=== PATIENT | male | born 2000 | race Caucasian/White ===

== ENCOUNTER 2020-08-19 20:26 | Emergency (ER) | payer BC ==
[2020-08-19 20:41] VITALS: BP 126/81; PULSE 92
--- NOTE | 2020-08-19 21:08 | EDM.PDOC ---
ED HPI GENERAL MEDICAL PROBLEM - General Chief Complaint: ENT Problem Stated Complaint: NOSE INJURY Time Seen by Provider: 08/19/20 20:53 Source of Information: Reports: Patient, RN Notes Reviewed - History of Present Illness INITIAL COMMENTS - FREE TEXT/NARRATIVE: Pt took softball to nose a couple of hrs ago. It did bleed initially but that has stopped. L nose more painful and swollen. No other area of injury Nose Pain Score (Numeric/FACES): 8 - Related Data Allergies Allergy/AdvReac Type Severity Reaction Status Date / Time oseltamivir phosphate Allergy Rash Verified 08/19/20 20:36 [From Tamiflu] Home Meds: Home Meds Albuterol Sulfate [Ventolin Hfa] 1 puff INH ASDIRECTED PRN 04/16/15 [History] Past Medical History HEENT History: Reports: None Cardiovascular History: Reports: None Respiratory History: Reports: Asthma Gastrointestinal History: Reports: None Genitourinary History: Reports: None Other Musculoskeletal History: dislocated elbow Neurological History: Reports: None Psychiatric History: Reports: None Endocrine/Metabolic History: Reports: None Hematologic History: Reports: None Immunologic History: Reports: None Oncologic (Cancer) History: Reports: None Dermatologic History: Reports: None - Infectious Disease History Infectious Disease History: Reports: Influenza - Past Surgical History Head Surgeries/Procedures: Reports: None HEENT Surgical History: Reports: None Cardiovascular Surgical History: Reports: None GI Surgical History: Reports: None Male Surgical History: Reports: None Musculoskeletal Surgical History: Reports: None Social & Family History - Family History Family Medical History: No Pertinent Family History - Tobacco Use Tobacco Use Status *Q: Never Tobacco User - Caffeine Use Caffeine Use: Reports: Coffee, Energy Drinks, Soda - Recreational Drug Use Recreational Drug Use: No ED ROS ENT - Review of Systems Review Of Systems: See Below Constitutional: Reports: No Symptoms HEENT: Reports: Nosebleed, Other (nose pain and swelling) Respiratory: Denies: Shortness of Breath Cardiovascular: Reports: No Symptoms GI/Abdominal: Reports: No Symptoms Musculoskeletal: Reports: No Symptoms Skin: Reports: Erythema (L nose) ED EXAM, ENT - Physical Exam Exam: See Below General Appearance: Alert, No Apparent Distress Nose: Nasal Swelling, Nasal Tenderness (mid and L nose). No: Nasal Deformity, Septal Deformity, Septal Hematoma, Active Bleeding Head: No: Facial Swelling, Facial Tenderness Respiratory/Chest: No Respiratory Distress Extremities: Normal Inspection Neurological: Alert, Oriented, No Motor/Sensory Deficits Skin: Warm, Dry, Normal Color Course - Vital Signs Last Recorded V/S: Last Vital Signs Temp 99.5 F 08/19/20 20:38 Pulse 92 08/19/20 20:38 Resp 18 08/19/20 20:38 BP 126/81 08/19/20 20:38 Pulse Ox 99 08/19/20 20:38 - Orders/Labs/Meds Orders: Active Orders 24 hr Category Date Time Status Nasal Bone Min 3V [CR] Stat Exams 08/19/20 20:57 Taken - Re-Assessments/Exams Free Text/Narrative Re-Assessment/Exam: 08/20/20 02:30 X ray shows nondisplaced fx distal nose. Departure - Departure Time of Disposition: 21:30 Disposition: Home, Self-Care 01 Condition: Fair Clinical Impression: Nasal fracture Qualifiers: Encounter type: initial encounter Fracture type: closed Qualified Code(s): S02.2XXA - Fracture of nasal bones, initial encounter for closed fracture - Discharge Information Instructions: Nasal Fracture, [id number], Nasal Fracture Referrals: PCP,None [Primary Care Provider] - Forms: ED Department Discharge Additional Instructions: Ice packs and elevation for swelling. Avoid further injury to nose. Follow up with your provider if it does look crooked or displaced when the swelling goes down. I do not see that it is displaced on Xrays taken this evening. Sepsis Event Note (ED) - Evaluation Sepsis Screening Result: No Definite Risk - Focused Exam Vital Signs: Vital Signs Temp Pulse Resp BP Pulse Ox 08/19/20 20:38 99.5 F 92 18 126/81 99 - My Orders Last 24 Hours: My Active Orders 08/19/20 20:57 Nasal Bone Min 3V [CR] Stat - Assessment/Plan Last 24 Hours: My Active Orders 08/19/20 20:57 Nasal Bone Min 3V [CR] Stat
--- NOTE | 2020-08-20 07:58 | CR ---
Nasal bone: 3 views of the nasal bone were obtained. Comparison: No prior nasal study is available. Fracture is seen within the distal nasal bone. No displacement is noted. Visualized paranasal sinuses are intact. No additional osseous abnormality is appreciated. Impression: 1. Small fracture within the distal nasal bone with no definite displacement. 2. No additional abnormality is appreciated. Diagnostic code #3
== END 2020-08-19 21:40 | disposition home or self-care (01) ==
LOC: JD.ED 20:26
DX: S02.2XXA Fracture of nasal bones, initial encounter for closed fracture (principal); Z88.8 Allergy status to other drugs, medicaments and biological substances; W22.8XXA Striking against or struck by other objects, initial encounter; Y93.64 Activity, baseball
CPT/HCPCS: 70160; 70160-26; 99283